=== PATIENT | male | born 2000 | race Hispanic/Latino ===

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

== ENCOUNTER 2021-09-20 13:13 | Emergency (ER) | payer OTHER ==
[~2021-09-20] VITALS: Ht 177.8 cm; Wt 105.0 kg
[2021-09-20] MEDS ORDERED: IBUPROFEN IB200 MG PO (14:56)
[2021-09-20] MEDS ORDERED: IBUPROFEN200 M1 PO (14:57)
== END 2021-09-20 16:47 | disposition home or self-care (01) ==
LOC: ED 13:13
DX: U07.1 COVID-19 (principal)
CPT/HCPCS: 99284; C9803; U0003